=== PATIENT | female | born 1960 | race Caucasian/White ===

== ENCOUNTER 2018-01-20 11:00 | Outpatient (RCR) | payer MEDICAID, SELFPAY ==
--- NOTE | 2018-01-14 11:12 | IE_ITS ---
Date: January 14, 2018 Referring: Tomas Martins DO M.D. Diagnosis: Acute R knee P.T. 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 She states that in October she was helping her daughter with prom shopping and was trying to sprint to a store before closing time. In the process, she felt a sudden pain and a popping sensation through the R knee. It has been about 3 months since, and she believes the pain is getting somewhat worse. She has already been seen by an orthopaedist and an x-ray was conducted, which showed no fracture or dislocation.She feels like her knee is stiffening up and it is getting hard to walk during the day. Pain Ratin/10 Prior Level of Function: Unrestricted. Current Level of Function: Walking slower with limited distance. Previous Treatment: Nothing yet. Social: She lives in [facility] with her son and daughter. Comorbidities: PKB and hypertension. Medications: Hydrochlorothiazide. Quality of Life: __X__ Good Standardized Measures: LEFS score: __43%__ OBJECTIVE: Posture: In standing pt is mildly overweight. Demonstrates a mild forward head position and a light amount of WB bias onto the LLE. Gait: Mildly antalgic with a slight reduction in stance time through the R as opposed to the L. Palpation: Mildly tender to palpation through the R popliteal fossa, more medial than lateral, and there is some slight evidence of mild joint effusion with a mild patellar ballottement test being somewhat positive on the R side. An SFMA top tier assessment was completed. Notable dysfunctional non-painful patterns through multi-segmental rotation, multi-segmental extension, multi- segmental flexion. Dysfunctional painful pattern at arms down deep squat and single leg stance on the R. ROM: Measurements for this pt are as follows: Multi-segmental trunk flexion full but with a non-continuos spinal curve Multi-segmental extension of the trunk 50% of available motion slight pain through the R knee Hip flexion WNL bilaterally Hip IR and ER WNL bilaterally Hip abduction WNL bilaterally Knee extension slightly limited at terminal extension on the R with pain at end range and on the L full end range 0 degrees. Flexion 135 degrees R with mild tension but no significant pain at end range and 135 degrees L no pain Ankle dorsiflexion and plantar flexion WNL. Strength: Measurements for this pt are as follows: Hip flexion 4+/5 bilaterally Quads 4+/5 R mild pain upon resistance, 5/5 L Hamstrings 4+/5 L mild pain upon resistance, 5/5 L Dorsiflexion 5/5 Plantar flexion 5/5 Glute medius 4-/5 bilaterally Neuro: Pt intact to light touch and sensation through LE dermatomes. Motor control appears intact over associated myotomes and pt demonstrates appropriate proprioception and kinesthetic awareness. Special Tests: Lb, varus valgus and posterior draw testing non- discriminatory between the 2 sides and negative for ligamentous instability. Mildly positive Hannah test on the R, negative L. Thessaly test appears mildly positive R , negative L. Straight leg raise mildly limited with hamstring extensibility issues noted at 60 degrees of hip flexion bilaterally. Treatment: IE and assessment of functional mobility, as well as training in a formal exercise program. Pt demonstrated verbal acknowledgment and technique demonstration. IE: [id number] Manual therapy: ([id number]).Pt was placed in supine receiving gentle long axis traction through the RLE. She was then mobilized to pure end range after decompression through the joint. In the sitting, she is mobilized with gentle traction while also influencing a knee ROM position from 60-10 degrees with repetition. Pt was able to walk with less antalgia and less discomfort at the end of the session. Direct treatment time: 60 min Total treatment time: 60 min direct pt care ASSESSMENT: Patient is a 57-year-old female with a history of good physical health, referred for PT services with the diagnosis of acute R knee pain. Patient presents with clinical signs and symptoms consistent with mild internal derangement with movement pattern restriction through the R knee, as demonstrated by the following impairment level findings: mildly positive Thessaly test and Hannah test, mildly positive straight leg raise with hamstring extensibility issues bilaterally, decreased strength with pain upon resistance to the quads and hamstrings, ROM deficits in pure knee extension through the R with pain at end range. Impairments are contributing to the following functional limitations:difficulty with long distance walking, difficulty with her endurance. Patient is assessed as: __X__ Low 71444 complexity, based on the following: History: (list): PKB and hypertension. Examination: (list): Positive Hannah, positive Thessaly sign through the R, strength deficits and pain upon resistance through the quads and hamstrings of the R knee and LE. Presentation: X Stable Decision-Making: X Low complexity 43 % Disability based on LEFS __X__ Patient requires skilled PT intervention to remediate the above functional limitations to return to: __X__ Premorbid level of function Prognosis: __X__ Good as evidence suggests improvement of functional mobility with compliance to a detailed HEP tailored to her diagnosis and following through with PT intervention. STG: __2__ weeks. 1. Pt will be independent in HEP both verbally and with ideal technique demonstration. LTG: __6__ weeks. 1. Pt able to walk 2 miles within 30 min with ideal body mechanics and no evidence of pain. PLAN: Patient to be seen 2 x per week, for 6 weeks, adjusting frequency of visits per patient symptoms and response to treatment. Treatment to include: X Manual therapy - [id number]: for enhancing muscle extensibility and improving joint arthrokinematics. X Therapeutic exercise - [id number] tactile cues, verbal education and advanced movement correctives for establishing muscle symmetry and a return of premorbid stability motor control through the RLE. X Ultrasound and e-stim available for pain modulation as necessary. The pt will be monitored for compliance to HEP and pts status will be updated accordingly. Plan may be modified as symptoms dictate. Thank you for this referral. Please do not hesitate to contact me with any questions or concerns regarding this patient's plan of care. ELISHA/elsie
--- NOTE | 2018-01-20 12:55 | PTTR_ITS ---
DATE: 01/20/18 SUBJECTIVE: I am doing okay. I have not been able to do many of my exercises but I am trying. OBJECTIVE: Manual therapy: ([id number]): Patient was placed in supine and mobilized with gentle long axis traction through the right lower extremity. She was guided through terminal knee extension and then patellar medial and superior glides. She was placed in prone where the tibia was mobilized anteriorly on a fixed femur to improve articular extensibility. She was mobilized with knee flexion to 90 degrees. Then in sitting she is mobilized with knee motion from 20-60 degrees with a traction through the joint. Patient tolerated treatment well Direct treatment time: 30 minutes of direct patient care.
--- NOTE | 2018-02-05 08:37 | NT_ITS ---
NON TREATMENT NOTE: 02/05/18 Patient was cancelled for today.s appointment.
== END 2018-02-05 23:59 | disposition home or self-care (01) ==
LOC: PT 11:00
PROVIDERS: PCP Emergency Medicine; Referring Provider Emergency Medicine; Visit Provider Emergency Medicine
DX: M25.561 Pain in right knee (principal); M23.91 Unspecified internal derangement of right knee
CPT/HCPCS: 97140; 97161

== ENCOUNTER 2018-03-15 00:36 | Outpatient (CLI) | payer MEDICAID, SELFPAY ==
--- NOTE | 2018-03-15 14:10 | DI.MRI_ITS ---
SYMPTOMS/DIAGNOSIS: RIGHT KNEE PAIN, MEDIAL JOINT LINE, M23.91, INTERNAL DERANGEMENT MRI OF THE RIGHT KNEE: Routine noncontrast examination was performed. The anterior cruciate and posterior cruciate ligaments are intact. The medial collateral ligament is intact. There is some fluid around the ligament, which may represent a grade 1 sprain. The lateral collateral ligament is intact, as are the extensor mechanism, medial and lateral retinaculum and popliteus tendon. The articular cartilage is well maintained. There is mild marrow edema seen in the lateral tibial plateau, but no evidence of a fracture or avascular necrosis is seen. There is a moderate-sized joint effusion. No popliteal cyst is present. The lateral meniscus is intact. There is intermediate oblique signal seen within the body of the medial meniscus. This may represent degeneration and/or a tear. No evidence of a soft tissue mass is appreciated. IMPRESSION: 1. Findings suggestive of a grade 1 sprain of the medial collateral ligament. 2. Tear or degeneration involving the body of the medial meniscus. 3. Joint effusion. 4. Marrow edema but no evidence of an occult fracture or avascular necrosis.
== END 2018-03-15 00:56 ==
PROVIDERS: PCP Emergency Medicine; Visit Provider Student in an Organized Health Care Education/Training Program
DX: M25.561 Pain in right knee (principal); M23.91 Unspecified internal derangement of right knee; S83.411A Sprain of medial collateral ligament of right knee, initial encounter; S83.241A Other tear of medial meniscus, current injury, right knee, initial encounter; M25.461 Effusion, right knee
CPT/HCPCS: 73721

== ENCOUNTER 2018-04-05 00:36 | Outpatient (CLI) | payer MEDICAID, SELFPAY ==
--- NOTE | 2018-04-05 11:00 | DI.US_ITS ---
SYMPTOM/DIAGNOSIS: F/U POLYCYSTIC KIDNEYS, CHECK SIZE, Q61.2 RENAL ULTRASOUND: Routine examination. Comparison is made with 04/13/17. The right kidney measures 18 cm. long. There are innumerable right renal cysts. The largest appears septated and measures 7.9 by 4 by 6.9 cm. There is normal blood flow to the right kidney. The left kidney measures 19.1 cm. long. There are innumerable left renal cysts present. The largest is seen in the mid pole and measures 4.2 by 4.1 by 3.5 cm. No solid renal cysts are seen. There is normal blood flow to the left kidney. The prevoid urinary bladder volume is 66 cc's. The bladder wall appeared smooth. No intraluminal masses were present. The bladder completely emptied upon voiding. IMPRESSION: Polycystic kidneys.
== END 2018-04-05 00:56 ==
PROVIDERS: PCP Emergency Medicine; Visit Provider Internal Medicine Nephrology
DX: Q61.2 Polycystic kidney, adult type (principal)
CPT/HCPCS: 76770

== ENCOUNTER 2018-06-09 09:47 | Outpatient (CLI) | payer MEDICAID, SELFPAY ==
[2018-06-09 11:40] LABS: Anion Gap 7.1 mmol/L (3-11); BUN 25 mg/dL (7-18); CO2 31.9 mmol/L (21.0-32.0); CREATININE 1.04 mg/dL (0.55-1.02); Calcium 9.3 mg/dL (8.5-10.1); Chloride 102 mmol/L (98-107); Estimated GFR 54.43 (mL/min/1.73m2); Glucose 98 mg/dL (70-100); Potassium 4.2 mmol/L (3.5-5.1); Sodium 141 mmol/L (136-145)
== END 2018-06-09 10:07 ==
PROVIDERS: PCP Emergency Medicine; Visit Provider Emergency Medicine
DX: I10 Essential (primary) hypertension (principal)
CPT/HCPCS: 36415; 80048

== ENCOUNTER 2019-06-10 07:00 | Outpatient (CLI) | payer MEDICAID, SELFPAY ==
[2019-06-10 13:05] LABS: Anion Gap 11.2 mmol/L (3-11); BUN 24 mg/dL (7-18); CO2 24.8 mmol/L (21.0-32.0); CREATININE 0.86 mg/dL (0.55-1.02); Calcium 8.8 mg/dL (8.5-10.1); Chloride 106 mmol/L (98-107); Glucose 97 mg/dL (74-106); Potassium 4.2 mmol/L (3.5-5.1); Sodium 142 mmol/L (136-145); TSH 1.23 uIU/mL (0.36-3.74)
== END 2019-06-10 07:20 ==
PROVIDERS: PCP Emergency Medicine; Visit Provider Emergency Medicine
DX: I10 Essential (primary) hypertension (principal); E03.9 Hypothyroidism, unspecified
CPT/HCPCS: 36415; 80048; 84443

== ENCOUNTER 2019-06-14 01:09 | Outpatient (CLI) | payer MEDICAID, SELFPAY ==
--- NOTE | 2019-06-14 10:43 | DI.US_ITS ---
EXAM: US RENAL CLINICAL HISTORY: POLYCYSTIC KIDNEY DISEASE, Q61.3 TECHNIQUE: Ultrasound performed using standard protocol. COMPARISON: RENAL ULTRASOUND from 06/11/2012 CTA BRAIN from 04/21/2013 CTA BRAIN from 04/21/2013 RIGHT BREAST ULTRASOUND from 07/08/2013 RENAL ULTRASOUND(P) from 04/13/2017 US renal from 04/05/2018 FINDINGS: Innumerable cysts are again noted in both kidneys. The renal parenchymal thickness appears normal. There is no hydronephrosis or gross evidence of stones. Largest cyst at the lower pole of the right kidney versus 2 adjacent cysts. The overall measurements are 7.3 x 4.2 x 6.2 cm. The cysts appear t o have been measured separately on previous examinations and overall there is no significant change. The largest cyst at the mid left kidney measures 4.2 in greatest dimension. The prevoid bladder vol ume is 92 cc. There is no postvoid residual. The right ureteral jet was not visualized. The left ur eteral jet was seen. IMPRESSION: No gross interval change in multiple bilateral renal cysts. No suspicious masses are identified. Th ere is no evidence of hydronephrosis.
== END 2019-06-14 01:29 ==
PROVIDERS: PCP Emergency Medicine; Visit Provider Emergency Medicine
DX: Q61.3 Polycystic kidney, unspecified (principal)
CPT/HCPCS: 76770

== ENCOUNTER 2020-07-17 13:06 | Outpatient (REF) | payer BC, MEDICAID, SELFPAY ==
[2020-07-17 22:19] LABS: Anion Gap 8.6 mmol/L (3-11); BUN 29 mg/dL (7-18); CO2 26.4 mmol/L (21.0-32.0); Calculated LDL 144 mg/dL (<100); Chloride 102 mmol/L (98-107); Cholesterol 229 mg/dL (<200); Estimated GFR 56.56 (mL/min/1.73m2); GGT 29 U/L (5-55); Glucose 100 mg/dL (74-106); HDL Cholesterol 66 mg/dL (40-60); Potassium 4.4 mmol/L (3.5-5.1); Sodium 137 mmol/L (136-145); Triglyceride 95 mg/dL (<150)
== END 2020-07-17 13:07 | disposition home or self-care (01) ==
LOC: NCHCN 13:06
PROVIDERS: PCP Emergency Medicine; Visit Provider Emergency Medicine
DX: E78.5 Hyperlipidemia, unspecified (principal); I10 Essential (primary) hypertension; F10.10 Alcohol abuse, uncomplicated; Z72.89 Other problems related to lifestyle
CPT/HCPCS: 80048; 80061; 82977

== ENCOUNTER 2021-02-18 15:56 | Outpatient (CLI) | payer BC, SELFPAY ==
--- NOTE | 2021-02-18 13:15 | DI.RAD_ITS ---
Exam(s) XR KNEE LT 3V AP,LAT,CARIN EXAM: XR KNEE LT 3V AP,LAT,CARIN CLINICAL HISTORY: L knee pain. TECHNIQUE: 2D digital imaging was performed. COMPARISON: MR MR lower joint RT wo from 03/15/2018 FINDINGS: BONES: No acute fracture is present. No bony destructive lesion is seen. JOINTS: The knee is normally aligned. No joint effusion is seen. Mild narrowing medial femoral tibia l joint. SOFT TISSUE: Normal. IMPRESSION: Minimal degenerative changes medial femoral tibial joint. DATA REPOSITORY: RADIATION DOSE DELIVERED:
== END 2021-02-18 15:57 | disposition home or self-care (01) ==
LOC: DIORS 15:57
PROVIDERS: PCP Emergency Medicine; Referring Provider Emergency Medicine; Visit Provider Physician Assistant
DX: M25.562 Pain in left knee (principal); M17.12 Unilateral primary osteoarthritis, left knee
CPT/HCPCS: 73562

== ENCOUNTER 2021-12-05 02:34 | Outpatient (CLI) | payer BC, SELFPAY ==
[2021-12-05 12:49] LABS: HCT 43.9 % (36.0-46.0); MCH 30.4 pg (27.0-33.0); MCHC 34.2 % (32.0-36.0); MCV 89 fL (80-95); MPV 9.3 fL (8.0-11.0); Platelet Count 340 10^3/uL (130-400); RBC 4.93 10^6/uL (3.93-5.22); RDW 13.2 % (11.7-14.6); RDW-SD 43.1 fL; WBC 8.42 10^3/uL (4.4-10.8)
[2021-12-05 14:02] LABS: ALT 44 U/L (14-59); AST 27 U/L (15-37); Alkaline Phosphatase 80 U/L (46-116); BUN 29 mg/dL (7-18); Bilirubin, Total 0.6 mg/dL (0.2-1.0); CREATININE 1.4 mg/dL (0.55-1.02); Calcium 9.2 mg/dL (8.5-10.1); Chloride 102 mmol/L (98-107); Estimated GFR 38.23 (mL/min/1.73m2); Glucose 101 mg/dL (74-106); Potassium 4.4 mmol/L (3.5-5.1); Sodium 138 mmol/L (136-145); TSH (W/Ref FT4) 1.04 uIU/mL (0.36-3.74); Total Protein 7.8 g/dL (6.4-8.2)
[2021-12-05 15:24] LABS: Calculated LDL 160 mg/dL (<100); Cholesterol 240 mg/dL (<200); HDL Cholesterol 71 mg/dL (40-60); Triglyceride 45 mg/dL (<150)
== END 2021-12-05 02:35 | disposition home or self-care (01) ==
LOC: LOS 02:34
PROVIDERS: Visit Provider Family Medicine
DX: E78.5 Hyperlipidemia, unspecified (principal); I10 Essential (primary) hypertension; K21.9 Gastro-esophageal reflux disease without esophagitis
CPT/HCPCS: 36415; 80053; 80061; 85027; 84443

== ENCOUNTER 2022-05-15 20:48 | Outpatient (REF) | payer BC, SELFPAY ==
--- OUTSIDE RECORDS SUMMARY | 2022-05-15 20:49 | XMS_ITS ---
:1960 Author Organization [facility] Address [address], [place] [id number] Care Team Providers Name Role Phone Lisette Llanos Unavailable Unavailable PROBLEMS Type Condition ICD9-CM Code [id number] Code Onset Condition SNO MED Code Dates Status Problem Uterine prolapse N81.4 Active 249 93834 Problem Pessary Z46.89 Active 062993645 maintenance Problem Hypertension, I10 Active 135260 00 unspecified type Problem Menopause Z78.0 Active 572197355 Problem Cystocele, N81.11 Active 725665165 midline ALLERGIES Substance Reaction Event Type Date Status dandelion unknown Non Drug Allergy Dec, Active grass Unknown Non Drug Allergy Dec, Active CT Scan dye unknown Non Drug Allergy Dec, Active ENCOUNTERS Encounter Location Date Diagnosis [facility] [address] [facility] Feb, Enc ounter for screening [place], [place] laboratory testi ng for [id number] COVID-19 virus Z 20.[address] Dec, 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 89 [facility] [address] [facility] [address] Aug, [facility] [address] [place], [place] [id number] [facility] [address] [facility] Apr, Cru shing injury of fifth [place], [place] toe of left foot , initial [id number] encounter S97.12 2A and Closed fracture of phalanx of left fifth to e, initial encounter S92.50 2A [facility] [address] Jun, Health [address] [place], [place] [id number] [address] Jun, Cyst ocele, midline N81.11 Health [address] [place], [place] ; Menopau se Z78.0 and [id number] Uterine prolapse N81.[address] Sep, Enco unter for Health [address] [place], [place] gynecolog ical examination [id number] with abnormal fi nding Z01.411 ; Cystoc levi with uterine prolapse N81.4 ; Menopause Z78.0 ; Encounter for sc reening mammogram for ma lignant neoplasm of peng st Z12.31 ; Encounter for screening for malignant ne oplasm of cervix Z12.4 ; E ncounter for screening fo r infections with predominantly se xual mode of transmission Z11.3 and Hypertension, un specified type I10 Keven Carter MD [address] [facility] Mar, Encount er for [place] gynecological ex amination [id number] (general) (routi ne) with abnormal finding s Z01.411 ; Cystocele N81. 10 ; Asymptomatic men opausal state Z78.0 and Encounter for other screen ing for malignant neopla sm of breast Z12.39 Kveen Carter MD [address] [facility] [address] Sep, UTERINE PROLAPSE 618.1 [place], [place] [id number] Keven Cartre MD [address] [facility] [address] Jul, [place] [id number] Keven Carter MD [address] Jun, Nipple discharge 611.79 [place], [place] and First degree uterine [id number] prolapse 618.1 Keven Carter MD [address] [facility] Jun, [place], [place] [id number] Keven Carter MD [address] [facility] Jun, [place], [place] [id number] Keven Carter MD [address] [facility] Jun, [place], [place] [id number] IMMUNIZATIONS No Known Immunizations SOCIAL HISTORY Qualifiers Date Never Smoker REASON FOR REFERRAL FUNCTIONAL STATUS PLAN OF CARE Activity Details Pending Test MG MAMMOGRAPHY BILATERAL SCR EENING VITAL SIGNS Height 63.5 in 2022-01-03 Height 63.5 in 2020-12-03 Height 63.5 in 2019-04-25 Height 63.5 in 2018-06-25 Height 63.5 in 2017-10-02 Height 63.5 in 2015-03-19 Weight 176.8 lbs 2022-01-03 Weight 174.2 lbs 2020-12-03 Weight 162 lbs 2019-04-25 Weight 164 lb 4 oz lbs 2018-06-25 Weight 164 lb 8 oz lbs 2017-10-02 Weight 165 lbs 2015-03-19 Temperature 98.5 degrees Fahrenheit 2019-04-25 Heart Rate 78 /min 2019-04-25 Respiratory Rate 16 /min 2019-04-25 BMI 30.82 kg/m2 2022-01-03 BMI 30.37 kg/m2 2020-12-03 BMI 28.24 kg/m2 2019-04-25 BMI 28.64 kg/m2 2018-06-25 BMI 28.68 kg/m2 2017-10-02 BMI 28.77 kg/m2 2015-03-19 Blood pressure systolic 134 mm Hg 2022-01-03 Blood pressure diastolic 88 mm Hg 2022-01-03 MEDICATIONS Medication Instructions Dosage Frequency Start End Duration Statu s Date Date Hyzaar 100-12.5 MG Orally daily 1 tablet 24h Active Premarin 0.625 MG/GM Vaginal once 1/2 gram Jun, da ys Not-Taki or twice a 2018 ng week hydrochlorothiazide Orally Once a 1 tablet 24h Active 12.5 MG day in the morning PROCEDURES Procedure Date Ordered Result Body Site PESSARY NON RUBBER ANY TYPE December 03, 2020 [facility] OUT PT CLINIC COLLECTION FOR SARS COV Feb 17 [facility] - COVID 19 TESTING Feb 17, 2022 PESSARY NON RUBBER ANY TYPE October 02, 2017 [facility] OUT PT CLINIC COLLECTION FOR SARS COV Feb 17 PESSARY NON RUBBER ANY TYPE Mar 19, 2015 [facility] - BINAX ANTIGEN DETECTION SARS-COVID OPTICAL Feb 17, 2022 PESSARY FITTING Jun 25, 2018 PESSARY NON RUBBER ANY TYPE Jun 25, 2018 RESULTS Name Result Date Reference Range COVID 19 (POS) Dane Ag Card 2022-02-17 SARS-CoV-2 positive MG MAMMOGRAPHY BILATERAL 2021-02-06 SCREENING [facility] XR TOE LEFT 2019-04-25 MG MAMMOGRAPHY BILATERAL 2017-10-15 SCREENING Pap Lb, rfx HPV all pth 2017-10-02 . Note: . Clinical history: DIAGNOSIS: Neg SANTIAGO neg HR HPV neg GC/chlamydia Specimen adequacy: Additional comment: Recommendation: Performed by: Electronically signed by: Test ordered: Maturation index: Amended report: Addendum: QC reviewed by: Cytology history: Special procedure: QA comment: Diagnosis provided by: Source: Pathologist provided ICD9: Clinician provided ICD9: Interpretation LBP CPT Code Automation CHLAMYDIA/GONOCOCCUS, by PCR 2017-10-02 C. trachomatis by PCR PCR GENITAL SPECIMEN N. gonorrhoeae by PCR Chlamydia trachomatis, TOMAS Neisseria gonorrhoeae, TOMAS Please note: MG MAMMOGRAPHY BILATERAL 2015-04-05 SCREENING Pap Lb, HPV-hr 2015-03-19 . 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 [id number] [place] [phone] [place] self [place] [id number] MEDICAID [place] [address] MEDICAID [place] [id number]
[2022-05-15 21:01] LABS: HCT 46.1 % (36.0-46.0); HGB 15.4 g/dL (11.2-15.7); MCH 30.2 pg (27.0-33.0); MCHC 33.4 % (32.0-36.0); MCV 90 fL (80-95); MPV 10.1 fL (8.0-11.0); Platelet Count 304 10^3/uL (130-400); RDW 13.1 % (11.7-14.6); RDW-SD 43.8 fL; WBC 10.16 10^3/uL (4.4-10.8)
[2022-05-15 21:59] LABS: ALT 47 U/L (14-59); AST 35 U/L (15-37); Albumin 4.4 g/dL (3.4-5.0); Alkaline Phosphatase 96 U/L (46-116); Anion Gap 10.9 mmol/L (3-11); BUN 35 mg/dL (7-18); Bilirubin, Total 0.7 mg/dL (0.2-1.0); CO2 28.1 mmol/L (21.0-32.0); CREATININE 1.3 mg/dL (0.55-1.02); Calcium 9.4 mg/dL (8.5-10.1); Chloride 100 mmol/L (98-107); Estimated GFR 46.78 (mL/min/1.73m2); Glucose 95 mg/dL (74-106); Potassium 3.8 mmol/L (3.5-5.1); Sodium 139 mmol/L (136-145); Total Protein 8.1 g/dL (6.4-8.2)
[2022-05-15 22:17] LABS: Calculated LDL 144 mg/dL (<100); Cholesterol 230 mg/dL (<200); HDL Cholesterol 77 mg/dL (40-60); Triglyceride 46 mg/dL (<150)
== END 2022-05-15 20:49 | disposition home or self-care (01) ==
LOC: LBN 20:48
PROVIDERS: PCP Nurse Practitioner Family; Visit Provider Nurse Practitioner Family
DX: Z00.00 Encounter for general adult medical examination without abnormal findings (principal); I10 Essential (primary) hypertension; E78.5 Hyperlipidemia, unspecified; Q61.2 Polycystic kidney, adult type
CPT/HCPCS: 80053; 80061; 85027

== ENCOUNTER 2023-03-26 02:52 | Outpatient (CLI) | payer BC, SELFPAY ==
--- NOTE | 2023-03-26 09:30 | DI.MAMMO_ITS ---
Exam(s) MAMMO SCREENING EXAM: MAMMO SCREENING CLINICAL HISTORY: screening, Z12.39 TECHNIQUE: Bilateral full field digital CC and MLO mammographic images were obtained with 3D tomosyn thesis and utilizing computer aided detection (CAD). COMPARISON: Available for comparison. FINDINGS: Masses/Architectural Distortion: None seen. Microcalcifications: No suspicious pleomorphic-type are seen. Skin Thickening/Nipple Retraction: None. IMPRESSION: 1. No significant interval change with no specific features of malignancy noted. 2. Unless there is more urgent need, screening mammography is recommended, as per [place] [employer] guidelines. BI-RADS Category 1 - Negative Breast Density - Category C - Heterogeneously dense Breast density category C or D implies that the patient has dense breast tissue. Dense breast tissue is very common and is not abnormal but dense breast tissue can make it harder to find cancer on a ma mmogram. Also, dense breast tissue may increase their breast cancer risk. This information about the result of the mammogram report was provided to the patient to raise their awareness. Use this report when you speak with the patient about their risks for breast cancer, which includes their family hist ory. At that time, you may recommend for more screening tests (Ultrasound or MRI) as they might be us eful based on their risk. A negative radiographic report should not delay biopsy if a dominant or clinically suspicious mass is present. Up to ten percent of cancers are not identified on mammography. A negative report may reinforce clinical impression. Adenosis and dense breasts may obscure an underlying neoplasm. False positive reports average 6 to 10%. Patient will receive a letter notifying them of these results.
== END 2023-03-26 03:12 ==
PROVIDERS: PCP Nurse Practitioner Family; Visit Provider Nurse Practitioner Family
DX: Z12.31 Encounter for screening mammogram for malignant neoplasm of breast (principal)
CPT/HCPCS: 77063; 77067

== ENCOUNTER 2023-08-20 03:00 | Outpatient (CLI) | payer BC, SELFPAY ==
[2023-08-20 12:21] LABS: BUN 39 mg/dL (7-18); CREATININE 1.5 mg/dL (0.55-1.02); Calcium 9.3 mg/dL (8.5-10.1); Calculated LDL 155 mg/dL (<100); Chloride 104 mmol/L (98-107); Cholesterol 238 mg/dL (<200); Estimated GFR 38.91 (mL/min/1.73m2); Glucose 97 mg/dL (74-106); HDL Cholesterol 69 mg/dL (40-60); Potassium 3.7 mmol/L (3.5-5.1); Sodium 141 mmol/L (136-145); Triglyceride 71 mg/dL (<150)
== END 2023-08-20 03:01 | disposition home or self-care (01) ==
LOC: LBO 03:00
PROVIDERS: PCP Nurse Practitioner Family; Visit Provider Nurse Practitioner Family
DX: Z00.00 Encounter for general adult medical examination without abnormal findings (principal); I10 Essential (primary) hypertension; E78.5 Hyperlipidemia, unspecified; K21.9 Gastro-esophageal reflux disease without esophagitis; N18.30 Chronic kidney disease, stage 3 unspecified; R79.89 Other specified abnormal findings of blood chemistry
CPT/HCPCS: 36415; 80048; 80061

== ENCOUNTER 2024-07-05 02:30 | Outpatient (CLI) | payer BC, SELFPAY ==
--- NOTE | 2024-07-05 06:30 | DI.MAMMO_ITS ---
Exam(s) MAMMO SCREENING EXAM: MAMMO SCREENING CLINICAL HISTORY: screening,z12.39 TECHNIQUE: Bilateral full field digital CC and MLO mammographic images were obtained with 3D tomosyn thesis and utilizing computer aided detection (CAD). COMPARISON: Available for comparison. FINDINGS: Masses/Architectural Distortion: None seen. Microcalcifications: No suspicious pleomorphic-type are seen. Skin Thickening/Nipple Retraction: None. IMPRESSION: 1. No significant interval change with no specific features of malignancy noted. 2. Unless there is more urgent need, screening mammography is recommended, as per [place] [employer] guidelines. BI-RADS Category 1 - Negative Breast Density - Category C - Heterogeneously dense Breast density category C or D implies that the patient has dense breast tissue. Dense breast tissue is very common and is not abnormal but dense breast tissue can make it harder to find cancer on a ma mmogram. Also, dense breast tissue may increase their breast cancer risk. This information about the result of the mammogram report was provided to the patient to raise their awareness. Use this report when you speak with the patient about their risks for breast cancer, which includes their family hist ory. At that time, you may recommend for more screening tests (Ultrasound or MRI) as they might be us eful based on their risk. A negative radiographic report should not delay biopsy if a dominant or clinically suspicious mass is present. Up to ten percent of cancers are not identified on mammography. A negative report may reinforce clinical impression. Adenosis and dense breasts may obscure an underlying neoplasm. False positive reports average 6 to 10%. Patient will receive a letter notifying them of these results.
== END 2024-07-05 02:50 ==
LOC: DI 02:30
PROVIDERS: PCP Nurse Practitioner Family; Visit Provider Nurse Practitioner Family
DX: Z12.31 Encounter for screening mammogram for malignant neoplasm of breast (principal); R92.333 Mammographic heterogeneous density, bilateral breasts
CPT/HCPCS: 77063; 77067

== ENCOUNTER 2024-07-05 03:09 | Outpatient (CLI) | payer BC, SELFPAY ==
[2024-07-05 08:52] LABS: HCT 44.9 % (36.0-46.0); HGB 15.4 g/dL (11.2-15.7); MCHC 34.3 % (32.0-36.0); MCV 88 fL (80-95); MPV 8.9 fL (8.0-11.0); Platelet Count 311 10^3/uL (130-400); RBC 5.13 10^6/uL (3.93-5.22); RDW-SD 41.6 fL; WBC 6.41 10^3/uL (4.4-10.8)
[2024-07-05 09:03] LABS: ALT 32 U/L (14-59); AST 21 U/L (15-37); Albumin 3.6 g/dL (3.4-5.0); Alkaline Phosphatase 84 U/L (46-116); Anion Gap 9.4 mmol/L (3-11); BUN 31 mg/dL (7-18); Bilirubin, Total 0.45 mg/dL (0.2-1.0); CO2 27.6 mmol/L (21.0-32.0); CREATININE 1.5 mg/dL (0.55-1.02); Calcium 9.1 mg/dL (8.5-10.1); Calculated LDL 143 mg/dL (<100); Chloride 101 mmol/L (98-107); Cholesterol 233 mg/dL (<200); Estimated GFR 38.67 (mL/min/1.73m2); Glucose 103 mg/dL (74-106); HDL Cholesterol 74 mg/dL (40-60); Potassium 4.2 mmol/L (3.5-5.1); Sodium 138 mmol/L (136-145); Total Protein 7.9 g/dL (6.4-8.2); Triglyceride 82 mg/dL (<150)
[2024-07-05 09:11] LABS: Hemoglobin A1C 5.5 % (<5.7)
== END 2024-07-05 03:10 | disposition home or self-care (01) ==
LOC: LBO 03:09
PROVIDERS: PCP Nurse Practitioner Family; Visit Provider Nurse Practitioner Family
DX: Z00.00 Encounter for general adult medical examination without abnormal findings (principal); I10 Essential (primary) hypertension; E78.5 Hyperlipidemia, unspecified; K21.9 Gastro-esophageal reflux disease without esophagitis; N18.30 Chronic kidney disease, stage 3 unspecified; N81.4 Uterovaginal prolapse, unspecified
CPT/HCPCS: 36415; 80053; 80061; 85027; 83036

== ENCOUNTER 2024-07-05 11:33 | Outpatient (REF) | payer BC, SELFPAY ==
--- NOTE | 2024-07-05 11:45 | PAPFT_PTH ---
PATIENT: Jimmy Espinal LOC: [facility] U#:[id number] AGE/SX: 64/F ROOM: RE07/05/[address]: Leigh Castelan MD : 1960 BED: DIS: 07/05/2024 SPEC #: [id number] RECD: 07/05/24 17:45 STATUS: OSVALDO REQ #: [id number] MARY: 07/05/24 11:[address]: Leigh Castelan DEPT: [facility] Cytology RECD BY: Allegra Lee ENTERED: 07/05/24 17:45 SP TYPE: PAPFT OTHR DR: Shanta Xie, WILLIE Tissues: 1 - CX/ENDOCX FOR PAP SMEARS Procedures: PAP THIN PREP/[facility] Screening HPV DNA PROBE Comments: [id number] (HPV 16 & 18/45)
== END 2024-07-05 11:34 | disposition home or self-care (01) ==
LOC: LBN 11:33
PROVIDERS: PCP Nurse Practitioner Family; Visit Provider Obstetrics & Gynecology
DX: N81.4 Uterovaginal prolapse, unspecified (principal)
CPT/HCPCS: 88142; 87624